=== PATIENT | female | born 1940 | race Caucasian/White ===

== ENCOUNTER → 2016-09-11 | Outpatient (CLI) | payer OTHER | LOC: BHFA 09:15 | PROVIDERS: ATTEND Internal Medicine Cardiovascular Disease | DX: I25.10 Atherosclerotic heart disease of native coronary artery without angina pectoris (principal) ==

== ENCOUNTER → 2016-09-15 | Outpatient (CLI) | payer OTHER ==
--- NOTE | 2016-09-15 10:02 | MA ---
Screening Digital Mammogram With iCAD Analysis Clinical Indications: Routine screening. A sister was diagnosed with breast cancer in her 40s. Technique: Standard cephalocaudal projections are obtained. Digital breast tomosynthesis was performe d in the MLO projection with reconstruction at 1.0 mm slice thickness and composite MLO views reconst ructed. This examination is processed by the iCAD computer aided detection system. Comparison: August 2015, August 2014, August 2013, July 2012, July 2011, July 2010, annie2008. Breast density: Type B; Scattered fibroglandular densities. Findings: CAD was reviewed. No masses, suspicious calcifications or secondary signs of malignancy are seen. There has been no significant change in the appearance of either breast. Vascular calcificati ons are noted. Impression: Negative mammogram. BI-RADS 1. Recommendation: Routine mammographic screening in one year as long as physical examination is negativ e[facility]ly [facility] result [facility] to the [facility]. Negative mammography should not preclude additional workup of a clinically suspicious finding. The patient's information is entered into a reminder system with a target due date for her next mammo gram.
== END ==
LOC: FIMAGING 07:45
DX: Z12.31 Encounter for screening mammogram for malignant neoplasm of breast (principal); Z80.3 Family history of malignant neoplasm of breast
CPT/HCPCS: G0202

== ENCOUNTER → 2016-09-23 | Outpatient (CLI) | payer OTHER | LOC: BHFA 13:30 | PROVIDERS: ATTEND Internal Medicine Cardiovascular Disease | DX: I25.10 Atherosclerotic heart disease of native coronary artery without angina pectoris (principal); I27.2 Other secondary pulmonary hypertension; I07.1 Rheumatic tricuspid insufficiency; I34.0 Nonrheumatic mitral (valve) insufficiency; I10 Essential (primary) hypertension; I65.29 Occlusion and stenosis of unspecified carotid artery; E78.5 Hyperlipidemia, unspecified ==

== ENCOUNTER → 2016-09-29 | Outpatient (CLI) | payer OTHER ==
[~2016-09-29] MED LIST: IOPAMIDOL (ISOVUE 370) 100 ML BTL IV ONE
[2016-09-29 13:13] LABS: CREATININE 0.8 mg/dL (0.6-1.0); GLOMERULAR FILTRATION RATE > 60
--- NOTE | 2016-09-29 17:27 | CT ---
CT Angiogram of the Neck 1329 hours History: Mitral regurgitation. Right carotid bruit (R09.89, I 34.0). Technique: Spiral imaging was obtained from the aortic arch through the base of the skull during the administration of 85 mL Isovue-370 IV contrast. The images were reviewed in multiple planes. Volume r endering was performed by me, as well. Dose reduction techniques were utilized. 75 mL were originally injected, however, the CT scanner failed to start secondary to technical difficulties. Findings: CT Angiogram: The aortic arch has a normal contour. The great vessels off the aortic arch are normal in appearance. The common carotid artery has a normal contour bilaterally. Small calcified plaque is present at the carotid bulb bilaterally without significant stenosis.. The ECA and ICA are normal wit hout plaque formation or stenosis. There is mild to moderate tortuosity of the mid right ICA and mode rate tortuosity proximal left ICA. The vertebral arterial system within the neck is normal in appeara nce without stenosis, as well. The origin of the vertebral artery is also normal bilaterally. The dis mio ICA at the base the brain, as well as the basilar artery are normal in appearance. There is no ev idence of aneurysm. Images through the neck demonstrate no significant lymphadenopathy. A few small subcentimeter lymph n odes are seen. The musculature is symmetric. The submandibular glands and parotid glands are normal i n appearance bilaterally. There is incidental ankylosis of the mid to upper visualized thoracic spine . Impression: 1. Mild calcified plaque at the carotid bulb bilaterally without significant stenosis. 2. Tortuosity of the mid right ICA and proximal left ICA. Note: All calculations were calculated using NASCET criteria.
== END ==
LOC: FIMAGING 12:23
PROVIDERS: ATTEND Internal Medicine Cardiovascular Disease
DX: I70.8 Atherosclerosis of other arteries (principal); I34.0 Nonrheumatic mitral (valve) insufficiency
CPT/HCPCS: Q9967

== ENCOUNTER 2016-10-02 08:06 | Day surgery (SDC) | payer OTHER ==
[2016-10-02] MEDS ORDERED: fentaNYL 100 MCG/2 ML INJ IVP ONE (08:09)
[2016-10-02] MEDS ORDERED: BENZOCAINE UNIT DOSE SPRAY HURRICAINE MM ONE (08:09)
[2016-10-02] MEDS ORDERED: MIDAZOLAM 2 MG/2 ML VIAL IVP ONE (08:09)
[2016-10-02] MEDS ORDERED: NS 1,000 ML IV ONE (08:09)
[2016-10-02] MEDS ORDERED: fentaNYL 100 MCG/2 ML INJ ONE (08:21)
[2016-10-02] MEDS ORDERED: MIDAZOLAM 2 MG/2 ML VIAL ONE ×2 (08:21→11:05)
== END 2016-10-02 13:57 | disposition home health service (06) ==
LOC: FCATH 08:06
PROVIDERS: ATTEND Internal Medicine Cardiovascular Disease
PROC: B245ZZ4 Ultrasonography of Left Heart, Transesophageal (ICD-10-PCS; principal; 2016-10-02)
DX: I34.0 Nonrheumatic mitral (valve) insufficiency (principal); I65.29 Occlusion and stenosis of unspecified carotid artery; I25.10 Atherosclerotic heart disease of native coronary artery without angina pectoris; E78.5 Hyperlipidemia, unspecified; I10 Essential (primary) hypertension; I27.2 Other secondary pulmonary hypertension
CPT/HCPCS: J2250; J3010

== ENCOUNTER → 2017-03-11 | Outpatient (CLI) | payer OTHER | LOC: FIMAGING 09:24 | PROVIDERS: ATTEND Family Medicine | DX: M81.0 Age-related osteoporosis without current pathological fracture (principal); Z78.0 Asymptomatic menopausal state; E03.9 Hypothyroidism, unspecified; E78.5 Hyperlipidemia, unspecified; I10 Essential (primary) hypertension ==

== ENCOUNTER 2017-05-28 09:58 | Emergency (ER) | payer OTHER ==
--- NOTE | 2017-05-28 10:46 | EDPHY ---
HPI/HX/ROS/PE/MDM Narrative: CHIEF COMPLAINT: Possible shingles on face/eye HPI: The patient is a 77 y/o female arriving with her and complaining of worsening right face and eye pain and redness over the last few days. She describes her pain as "aching" and "stinging" extending from the bottom of her right face to her eye, ear, and hairline. She saw her PCP on Thursday, 3 days ago , and was prescribed prednisone. She accompanied her to his PCP's office yesterday and that provider treated her with acyclovir for shingles. She has an associated "massive" headache, chills, and a fever as high as 102F. She feels like she has blisters in her right ear and scalp. She denies ear ringing. She is able to see out of her right eye without field cuts, but does describe her vision as blurry. She has no history of diabetes, brain surgery, or eye surgeries. REVIEW OF SYSTEMS: Aside from elements discussed in the HPI, a comprehensive 10-point review of systems was reviewed and is negative. PMH: CAD, reactive airways disease, dyslipidemia, hypertension, mitral and tricuspid valve regurgitation, tonsillectomy, appendectomy, hysterectomy, varicose vein surgery x2, breast biopsy Prior medical records reviewed including admission 03/05/12 for chest pain. Catheterization at that time showed moderate CAD. SOCIAL HISTORY: . at bedside. Nonsmoker. Drinks wine regularly. PHYSICAL EXAM: General:Patient is alert, in no acute distress. ENT:Right eyelid swollen and erythematous with right periorbital edema. PERRLA. Fluorescein exam is normal. ENT inspection normal. Face: Erythema to right side of face with scattered blisters at hairline, tender to the touch. Neck: Normal inspection. Full range of motion. Respiratory:No respiratory distress. Breath sounds normal bilaterally. Cardiovascular: Regular rate and rhythm. Strong peripheral pulses. Normal cap refill. Abdomen:The abdomen is nontender to palpation. There are no peritoneal signs. Back: Normal to inspection. No tenderness to palpation. Skin: Normal color. No rash. Warm and dry. Extremities: Normal appearance. Full range of motion. Neuro: Oriented x3. Normal motor function. Normal sensory function. ED Course: This is a 77 y/o female who presents with a few-day history of right facial redness and stinging pain extending to her eye and hairline. She has scattered blisters at her hairline and the erythematous areas are tender to palpation. There is right periorbital edema. Fluorescein exam does not show uptake. Plan for 30mg IV Toradol for pain and maxillofacial CT CT shows soft tissue swelling over right orbit. 1220: Consulted with Dr. Erwin, ophthalmology. He would like to know results of fluorescein exam prior to offering input. 1430: Consulted again with Dr. Erwin. He does not recommend any topical treatment and can see her in his office as an outpatient for follow up. I discussed this with the patient. She is comfortable with plan and will be discharged with a script for Vicodin. Return precautions given. MDM: This patient presents with herpes zoster involving the right face and eyelid. There is no evidence of corneal or otic involvement at this time. Visual acuity is essentially normal. The patient reports a history of fever but is afebrile here and non-toxic appearing. She reports headache but show no photophobia or neck stiffness to suggest meningitis. She is already on prednisone and acyclovir. I havae given her a referral to ophtho. The patient requests to be discharged from the ED as soon as possible. We discussed strict return precautions. - Data Points Imaging Results: Imaging Impressions Face CT 05/28/17 10:48 Impression: 1. Preseptal soft tissue swelling over the right orbit. Findings discussed with Sergio Segundo MD at 12:03 hour, 05/28/2017. Imaging: Discussed imaging studies w/ call person Radiologist, I viewed and interpreted images myself Laboratory Results: Laboratory Results 05/28/17 13:52 05/28/17 13:52 05/28/17 05/28/17 13:52 13:52 WBC 5.28 10^3/uL 10^3/uL (3.80-9.50) RBC 4.15 10^6/uL L 10^6/uL (4.18-5.33) Hgb 13.2 g/dL g/dL (12.6-16.3) Hct 36.3 % L % (38.0-47.0) MCV 87.5 fL fL (81.5-99.8) MCH 31.8 pg pg (27.9-34.1) MCHC 36.4 g/dL g/dL (32.4-36.7) RDW 12.6 % % (11.5-15.2) Plt Count 183 10^3/uL 10^3/uL (150-400) MPV 9.8 fL fL (8.7-11.7) Neut % (Auto) 61.6 % % (39.3-74.2) Lymph % (Auto) 25.6 % % (15.0-45.0) [place] % (Auto) 11.6 % % (4.5-13.0) Eos % (Auto) 0.4 % L % (0.6-7.6) Baso % (Auto) 0.6 % % (0.3-1.7) Nucleat RBC Rel Count 0.0 % % (0.0-0.2) Absolute Neuts (auto) 3.26 10^3/uL 10^3/uL (1.70-6.50) Absolute Lymphs (auto) 1.35 10^3/uL 10^3/uL (1.00-3.00) Absolute Monos (auto) 0.61 10^3/uL 10^3/uL (0.30-0.80) Absolute Eos (auto) 0.02 10^3/uL L 10^3/uL (0.03-0.40) Absolute Basos (auto) 0.03 10^3/uL 10^3/uL (0.02-0.10) Absolute Nucleated RBC 0.00 10^3/uL 10^3/uL (0-0.01) Immature Gran % 0.2 % % (0.0-1.1) Immature Gran # 0.01 10^3/uL 10^3/uL (0.00-0.10) Sodium 135 mEq/L mEq/L (134-144) Potassium 3.9 mEq/L mEq/L (3.5-5.2) Chloride 106 mEq/L mEq/L (97-110) Carbon Dioxide 20 mEq/l L mEq/l (22-31) Anion Gap 9 mEq/L mEq/L (8-16) BUN 17 mg/dL mg/dL (7-23) Creatinine 0.9 mg/dL mg/dL (0.6-1.0) Estimated GFR > 60 Glucose 89 mg/dL mg/dL (70-100) Calcium 9.0 mg/dL mg/dL (8.5-10.4) Medications Given: Discontinued Medications Ketorolac Tromethamine (Toradol) 30 mg IVP EDNOW ONE Stop: 05/28/17 10:49 Last Admin: 05/28/17 11:49 Dose: 30 mg General Time Seen by Provider: 05/28/17 10:08 Initial Vital Signs: Initial Vital Signs Temperature (C) 36.9 C 05/28/17 10:02 Heart Rate 77 05/28/17 10:02 Respiratory Rate 17 05/28/17 10:02 Blood Pressure 151/77 H 05/28/17 10:02 O2 Sat (%) 94 05/28/17 10:02 O2 Delivery Mode Room Air Allergies/Adverse Reactions: cephalexin monohydrate [From Keflex] Allergy (Severe, Verified 03/05/12 16:08) Cephalosporins Allergy (Severe, Verified 03/05/12 16:08) codeine [Codeine] Allergy (Severe, Verified 03/05/12 16:08) flurbiprofen [From Ansaid] Allergy (Severe, Verified 03/05/12 16:08) levothyroxine sodium [From Synthroid] Allergy (Severe, Verified 03/05/12 16:08) meperidine HCl [From Demerol] Allergy (Severe, Verified 03/05/12 16:08) morphine Allergy (Severe, Verified 03/05/12 16:08) nitrofurantoin [From Macrobid] Allergy (Severe, Verified 03/05/12 16:08) nitrofurantoin macrocrystalline [From Macrobid] Allergy (Severe, Verified 16:08) Penicillins Allergy (Severe, Verified 03/05/12 16:08) raloxifene HCl [From Evista] Allergy (Severe, Verified 03/05/12 16:08) [id number]-Qdc-Uck Reductase Inhibitor Allergy (Severe, Verified 03/05/12 16:08) Sulfa (Sulfonamide Antibiotics) [Sulfa(Sulfonamide Antibiotics)] Allergy (Severe , Verified 03/05/12 16:08) tetracycline [Tetracycline] Allergy (Severe, Verified 03/05/12 16:08) tramadol HCl [From Ultram] Allergy (Severe, Verified 03/05/12 16:08) all derivatives Allergy (Severe, Uncoded 03/05/12 16:08) steroids Allergy (Severe, Uncoded 03/05/12 16:08) MCDONALDS FOOD Allergy (Uncoded 03/05/12 20:51) Home Medications: Medication Instructions Recorded Aspirin EC [Aspirin EC 81 mg (OTC)] 81 mg PO HS 03/05/12 Mometasone Furoate [Asmanex] 2 puffs IH BID 03/05/12 Pharmacy Complete 03/05/12 03/05/12 Pitavastatin Calcium [Livalo] 4 mg PO HS 03/05/12 Thyroid [[place] Thyroid 60 MG (RX)] 60 mg PO DAILY10 03/05/12 epINEPHrine [Epipen] 0.3 mg IM PRN 03/05/12 Ambien 5 mg PO HS PRN 10/02/16 Estradiol 0.1 mg PO TUTHSA 10/02/16 Prinivil 10 mg PO DAILY 10/02/16 Acyclovir 05/28/17 Hydrocodone/APAP 5/325 [[place] 1 - 2 tab PO Q4H PRN #10 tab 05/28/17 5/325 (RX)] predniSONE 60 mg PO DAILY #15 tab 05/28/17 Departure - Departure Disposition: Home, Routine, Self-Care Clinical Impression: Shingles Qualifiers: Herpes zoster complications: without complications Qualified Code(s): B02.9 - Zoster without complications Condition: Good Instructions: Shingles (ED) Additional Instructions: 1. Call today to make a follow up ophthalmology appointment within 72 hours. 2. Continue your prednisone and acyclovir as prescribed. 3. Return to the ED for severe pain, vision changes, uncontrollable fever, or other worsening of condition. 4. Use Vicodin as prescribed when needed for severe pain. Referrals: Héctor Sutton MD [Primary Care Provider] - As per Instructions Terry Erwin MD [Medical Doctor] - As per Instructions Prescriptions: Hydrocodone/APAP 5/325 [[place] 5/325 (RX)] 1 - 2 tab PO Q4H PRN #10 tab PRN Reason: Pain, Moderate predniSONE 60 mg PO DAILY #15 tab Report Scribed for: Sergio Segundo Report Scribed by: Elizabeth Balderrama Date of Report: 05/28/17 Time of Report: 10:40 Physician Review and Approval Statement: Portions of this note were transcribed by an ED scribe. I personally performed the history, physical exam, and medical decision making; and confirm the accuracy of the information in the transcribed note.
[2017-05-28] MEDS ORDERED: KETOROLAC 30 MG/1 ML SDV IVP ONE (10:48)
[2017-05-28] MEDS ORDERED: FLUORESCEIN SODIUM 1 MG STRIP OP ONE (12:29)
[2017-05-28] MEDS ORDERED: PROPARACAINE 0.5% 15 ML OPHT DROP ONE (12:29)
[2017-05-28 14:01] LABS: % IMMATURE GRANULYOCYTES 0.2 % (0.0-1.1); ABSOLUTE IMMATURE GRANULOCYTES 0.01 10^3/uL (0.00-0.10); ADD DIFF? NO; ADD MORPH? NO; ADD SCAN? NO; ATYPICAL LYMPHOCYTE FLAG 30 (0-99); FRAGMENT RBC FLAG 0 (0-99); HEMATOCRIT 36.3 % (38.0-47.0); HEMOGLOBIN 13.2 g/dL (12.6-16.3); LEFT SHIFT FLG 0 (0-99); LIPEMIA HEMOLYSIS FLAG 90 (0-99); MEAN CELL HEMOGLOBIN 31.8 pg (27.9-34.1); MEAN CELL HEMOGLOBIN CONCENTR. 36.4 g/dL (32.4-36.7); MEAN CELL VOLUME 87.5 fL (81.5-99.8); MEAN PLATELET VOLUME 9.8 fL (8.7-11.7); PLATELET CLUMPS FLAG 0 (0-99); PLATELET COUNT 183 10^3/uL (150-400); RED BLOOD CELL COUNT 4.15 10^6/uL (4.18-5.33); RED CELL DISTRIBUTION WIDTH 12.6 % (11.5-15.2)
[2017-05-28 14:16] LABS: ANION GAP 9 mEq/L (8-16); CARBON DIOXIDE 20 mEq/l (22-31); CHLORIDE 106 mEq/L (97-110); CREATININE 0.9 mg/dL (0.6-1.0); GLOMERULAR FILTRATION RATE > 60; GLUCOSE 89 mg/dL (70-100); POTASSIUM 3.9 mEq/L (3.5-5.2); SODIUM 135 mEq/L (134-144)
[2017-05-28 14:26] VITALS: BP 152/68; PULSE 68; RESP 16; TEMP 98.1; O2SAT 92
== END 2017-05-28 14:57 | disposition home or self-care (01) ==
DX: B02.9 Zoster without complications (principal); I25.10 Atherosclerotic heart disease of native coronary artery without angina pectoris; I10 Essential (primary) hypertension; Z79.82 Long term (current) use of aspirin
CPT/HCPCS: 70486; 96374; 99285; J1885

== ENCOUNTER → 2017-09-17 | Outpatient (CLI) | payer OTHER | LOC: FIMAGING 08:14 | PROVIDERS: ATTEND Family Medicine | DX: Z12.31 Encounter for screening mammogram for malignant neoplasm of breast (principal); Z80.3 Family history of malignant neoplasm of breast ==

== ENCOUNTER → 2018-01-05 | Outpatient (CLI) | payer OTHER | LOC: BHFA 10:45 | PROVIDERS: ATTEND Internal Medicine Cardiovascular Disease | DX: I25.10 Atherosclerotic heart disease of native coronary artery without angina pectoris (principal) ==

== ENCOUNTER → 2018-09-21 | Outpatient (CLI) | payer OTHER | LOC: FIMAGING 07:52 | PROVIDERS: ATTEND Family Medicine | DX: Z12.31 Encounter for screening mammogram for malignant neoplasm of breast (principal); Z80.3 Family history of malignant neoplasm of breast ==

== ENCOUNTER → 2018-12-06 | Outpatient (CLI) | payer OTHER | LOC: FIMAGING 09:21 | PROVIDERS: ATTEND Family Medicine | DX: Z13.820 Encounter for screening for osteoporosis (principal); M81.0 Age-related osteoporosis without current pathological fracture; E07.9 Disorder of thyroid, unspecified; Z78.0 Asymptomatic menopausal state ==

== ENCOUNTER → 2019-01-11 | Outpatient (CLI) | payer OTHER | LOC: BHFA 08:30 | PROVIDERS: ATTEND Internal Medicine Cardiovascular Disease | DX: I34.0 Nonrheumatic mitral (valve) insufficiency (principal) ==